=== PATIENT | male | born 1965 | race Caucasian/White ===

== ENCOUNTER 2022-01-06 12:58 | Emergency (ER) | payer BC ==
[~2022-01-06] VITALS: Ht 177.8 cm; Wt 83.9 kg
[2022-01-06 13:16] VITALS: BP_SYST 184
[2022-01-06] MEDS ORDERED: IBUP-1971 PO (13:46)
[2022-01-06] MEDS ORDERED: HYDR-3917 PO ×2 (13:46→13:48)
[2022-01-06 14:07] VITALS: BP_SYST 184
== END 2022-01-06 14:08 | disposition home or self-care (01) ==
LOC: SED 12:58
DX: S92.332A Displaced fracture of third metatarsal bone, left foot, initial encounter for closed fracture (principal); W18.39XA Other fall on same level, initial encounter; Y93.89 Activity, other specified; Y92.89 Other specified places as the place of occurrence of the external cause; Y99.8 Other external cause status
CPT/HCPCS: 99283